=== PATIENT | female | born 1975 | race Two or more races ===

== ENCOUNTER 2018-02-24 05:09 | Emergency (ER) | payer OTHER ==
[~2018-02-24] VITALS: Ht 149.9 cm; Wt 59.4 kg
[2018-02-24] MEDS ORDERED: ZYRTEC10 M3 (05:37)
[2018-02-24] MEDS ORDERED: ALEGRA (05:37)
[2018-02-24] MEDS ORDERED: KETO10TA2 PO (14:51)
== END 2018-02-24 15:14 | disposition home or self-care (01) ==
LOC: ER 05:09
DX: R10.11 Right upper quadrant pain (principal)